=== PATIENT | female | born 1945 | race Caucasian/White ===

== ENCOUNTER 2021-12-29 22:37 | Observation (INO) ==
[2021-12-29] MEDS ORDERED: 0.9 % Sodium Chloride 1,000 ML IVC ONE (23:01)
[2021-12-29] MEDS ORDERED: levoFLOXacin 750 MG/150 ML 750 MG/150 ML BAG IVPB ONE (23:01)
[2021-12-29] MEDS ORDERED: Ondansetron 4 MG/2 ML VIAL IVP ONE (23:03)
[2021-12-29] MEDS ORDERED: Azithromycin 500 MG VIAL ONE (23:06)
[2021-12-29] MEDS ORDERED: Ipratropium/Albuterol Neb 3 ML IH ONE (23:10)
[2021-12-29] MEDS: Azithromycin 500 MG in 0.9 % Sodium Chloride 250 ML IVPB ONE ×2 (23:22→23:45)
[2021-12-29 23:23] LABS: Basophils % 0.2 %; Eosinophils # 0.1 K/mcL (0.0-0.6); Eosinophils % 1.4 %; Hematocrit 34.2 % (35.3-44.9); Hemoglobin 11.4 g/dL (11.5-15.4); Immature Granulocytes % 0.2 % (0-4); Lymphocytes # 0.8 K/mcL (0.6-4.6); Lymphocytes % 16.2 %; Mean Corpuscular HGB Conc 33.3 g/dL (31.6-35.5); Mean Corpuscular Hemoglobin 34.1 pg (28.0-33.3); Mean Corpuscular Volume 102.4 fL (83.0-100.0); Mean Platelet Volume 9.4 fL (9.4-12.4); Monocytes # 0.3 K/mcL (0.0-1.3); Monocytes % 5.5 %; Neutrophils # 3.7 K/mcL (1.6-8.9); Red Blood Count 3.34 M/mcL (3.82-4.97); Red Cell Distribution Width 14.6 % (11.5-14.5); Segmented Neutrophils % 76.5 %; White Blood Count 4.9 K/mcL (4.3-11.1)
[2021-12-29 23:28] LABS: Platelet Count 76 K/mcL (140-400)
[2021-12-29 23:29] LABS: INR 1.3; Prothrombin Time 14.6 Seconds (9.4-12.1)
[2021-12-29 23:40] LABS: Troponin I < 0.03 ng/mL (< 0.04)
[2021-12-29 23:41] LABS: Alanine Aminotransferase 35 Units/L (7-52); Albumin 3.8 g/dL (3.5-5.7); Albumin/Globulin Ratio 1.7 (1.1-2.2); Alkaline Phosphatase 111 Units/L (34-104); Aspartate Amino Transferase 71 Units/L (13-39); BUN/Creatinine Ratio 16 (6-26); Bilirubin,Direct 0.4 mg/dL (0.0-0.2); Bilirubin,Indirect 0.5 mg/dL (0.0-1.0); Bilirubin,Total 0.9 mg/dL (0.3-1.0); Blood Urea Nitrogen 14 mg/dL (8-23); Calcium 9.2 mg/dL (8.6-10.3); Carbon Dioxide 28 mEq/L (23-29); Chloride 99 mEq/L (98-107); Globulin 2.3 g/dL (2.4-3.5); Glucose 125 mg/dL (70-105); Osmolality,Calculated 280 (280-300); Potassium 4.1 mEq/L (3.5-5.1); Sodium 134 mEq/L (136-145); Total Protein 6.1 g/dL (6.4-8.9); eGFR For African Americans > 60 (> 60); eGFR For Non-African Americans > 60 (> 60)
[2021-12-29 23:48] LABS: VBG HCO3 25 mEq/L (21-27); VBG PCO2 34 mmHg (41-51); VBG PH 7.47 pH Units (7.32-7.42); VBG PO2 121 mmHg (25-50)
[2021-12-30] MEDS ORDERED: 0.9 % Sodium Chloride 1,000 ML IVC ONE ×2 (00:07→01:37)
[2021-12-30] MEDS ORDERED: 0.9 % Sodium Chloride 1,000 ML IVC SCH ×4 (00:15→03:50)
[2021-12-30] MEDS ORDERED: Pantoprazole 40 MG VIAL IVP ONE (00:31)
[2021-12-30 01:12] LABS: Bilirubin,Urine Negative (Negative); Blood,Urine Negative (Negative); Clarity,Urine Clear (Clear); Color,Urine Yellow (Yellow); Glucose,Urine (UA) Normal (Normal); Ketones,Urine Negative (Negative); Leukocyte Esterase,Urine Negative (Negative); Nitrite,Urine Negative (Negative); Protein,Urine Negative (Neg-Trace); Specific Gravity,Urine 1.025 (1.010-1.025); Urobilinogen,Urine Normal (Normal)
[2021-12-30] MEDS ORDERED: Ondansetron 4 MG/2 ML VIAL IVP PRN ×2 (03:48→03:50)
[2021-12-30] MEDS ORDERED: Azithromycin 500 MG VIAL ONE ×2 (03:48→03:50)
[2021-12-30] MEDS ORDERED: Acetaminophen 325 MG TABLET PO PRN ×2 (03:48→03:50)
[2021-12-30] MEDS ORDERED: Naloxone 0.4 MG/ML INJ IVP PRN ×2 (03:48→03:50)
[2021-12-30] MEDS ORDERED: Nitroglycerin 0.4 MG TAB.SUBL SL PRN ×2 (03:48→03:50)
[2021-12-30] MEDS ORDERED: Ipratropium/Albuterol Neb 3 ML IH SCH (04:00)
[2021-12-30] MEDS ORDERED: *HR* Enoxaparin 40 MG/0.4 ML SYRINGE SQ SCH ×2 (07:00)
[2021-12-30] MEDS: Ipratropium/Albuterol Neb 3 ML IH SCH ×5 (07:12→23:22)
[2021-12-30] MEDS: Budesonide/Formoterol 160/4.5 1 PUFF INH IH SCH ×2 (07:12→19:40)
[2021-12-30] MEDS ORDERED: Sucralfate 1 GM TABLET PO SCH (07:30)
[2021-12-30] MEDS: Sucralfate 1 GM TABLET PO SCH ×4 (08:44→20:13)
[2021-12-30] MEDS: 0.9 % Sodium Chloride 1,000 ML IVC SCH ×2 (08:52→10:28)
[2021-12-30] MEDS ORDERED: CarBAMazepine XR (12 hr) 100 MG TAB PO SCH (09:00)
[2021-12-30] MEDS ORDERED: CARBAMAZEPINE 200 MG PO SCH (09:00)
[2021-12-30] MEDS ORDERED: NON-FORMULARY MEDICATION 1 EACH EACH (Esomeprazole Magnesium [Nexium] 40 MG Capsule.Dr) PO SCH (09:00)
[2021-12-30] MEDS ORDERED: NON-FORMULARY MEDICATION 1 EACH EACH (Ezetimibe [Zetia] 10 MG Tablet) PO SCH (09:00)
[2021-12-30] MEDS ORDERED: NON-FORMULARY MEDICATION 1 EACH EACH (Umeclidinium Bromide [Incruse Ellipta] 62.5 MCG) IH SCH (09:00)
[2021-12-30] MEDS ORDERED: Tiotropium 10 INH DOSE IH SCH ×2 (09:00)
[2021-12-30] MEDS ORDERED: Famotidine 20 MG TABLET PO SCH ×2 (09:00)
[2021-12-30] MEDS ORDERED: NON-FORMULARY MEDICATION 1 EACH EACH (Umeclidinium Bromide [Incruse Ellipta] 62.5 MCG Blst IH SCH (09:00)
[2021-12-30] MEDS ORDERED: NON-FORMULARY MEDICATION 1 EACH EACH (Roflumilast [Daliresp] 500 MCG Tablet) PO SCH (09:00)
[2021-12-30] MEDS ORDERED: Aspirin 325 MG TABLET PO SCH ×2 (09:00)
[2021-12-30] MEDS ORDERED: Roflumilast [Daliresp] 500 MCG PO SCH (09:00)
[2021-12-30] MEDS ORDERED: EZETIMIBE 10 MG PO SCH (09:00)
[2021-12-30] MEDS ORDERED: Budesonide/Formoterol 160/4.5 1 PUFF INH IH SCH (10:00)
[2021-12-30] MEDS: MethylPREDNISolone 40 MG/ML VIAL IVP SCH ×4 (11:03→23:51)
[2021-12-30 20:12] LABS: Adenovirus Not Detected (Not Detect); Bordetella Pertussis Not Detected (Not Detect); Chlamydophila pneumoniae Not Detected (Not Detect); Coronavirus 229E Not Detected (Not Detect); Coronavirus HKU1 Not Detected (Not Detect); Coronavirus NL63 Not Detected (Not Detect); Coronavirus OC43 Not Detected (Not Detect); Human Metapneumovirus DETECTED (Not Detect); Human Rhinovirus/Enterovirus Not Detected (Not Detect); Influenza A Subtype 2009 H1 Not Detected (Not Detect); Influenza B Not Detected (Not Detect); Mycoplasma pneumoniae Not Detected (Not Detect); Parainfluenza Virus 1 Not Detected (Not Detect); Parainfluenza Virus 2 Not Detected (Not Detect); Parainfluenza Virus 3 Not Detected (Not Detect); Parainfluenza Virus 4 Not Detected (Not Detect); Respiratory Syncytial Virus Not Detected (Not Detect); SARS-CoV-2 Not Detected (Not Detect)
[2021-12-30] MEDS ORDERED: Gabapentin 300 MG CAPSULE PO SCH ×2 (21:00)
[2021-12-31] MEDS ORDERED: levoFLOXacin 750 MG/150 ML 750 MG/150 ML BAG IVPB SCH
[2021-12-31] MEDS ORDERED: Haloperidol Lactate 5 MG/ML VIAL IVP ONE (00:24)
[2021-12-31] MEDS ORDERED: Furosemide 20 MG/2 ML VIAL IVP ONE (01:11)
[2021-12-31 02:03] VITALS: TEMP 97.7
[2021-12-31] MEDS ORDERED: *HR* Metoprolol 5 MG/5 ML VIAL IVP ONE (02:16)
[2021-12-31 02:33] LABS: Hematocrit 39.6 % (35.3-44.9); Hemoglobin 12.9 g/dL (11.5-15.4); Mean Corpuscular HGB Conc 32.6 g/dL (31.6-35.5); Mean Corpuscular Hemoglobin 33.9 pg (28.0-33.3); Mean Corpuscular Volume 104.2 fL (83.0-100.0); Mean Platelet Volume 9.3 fL (9.4-12.4); Red Cell Distribution Width 14.9 % (11.5-14.5); White Blood Count 11.7 K/mcL (4.3-11.1)
[2021-12-31 02:35] LABS: Platelet Count 85 K/mcL (140-400)
[2021-12-31 02:43] LABS: INR 1.1; Prothrombin Time 12.5 Seconds (9.4-12.1)
[2021-12-31 02:46] LABS: D-Dimer 1406 ng/mLFEU (0-500); Heparin anti-factor XA UFH < 0.04 IU/mL (0.30-0.70)
[2021-12-31 02:47] LABS: VBG HCO3 25 mEq/L (21-27); VBG PCO2 55 mmHg (41-51); VBG PH 7.26 pH Units (7.32-7.42); VBG PO2 49 mmHg (25-50)
[2021-12-31 02:52] LABS: BUN/Creatinine Ratio 17 (6-26); Blood Urea Nitrogen 16 mg/dL (8-23); Calcium 9.7 mg/dL (8.6-10.3); Carbon Dioxide 27 mEq/L (23-29); Chloride 105 mEq/L (98-107); Glucose 142 mg/dL (70-105); Osmolality,Calculated 294 (280-300); Potassium 4.2 mEq/L (3.5-5.1); Sodium 140 mEq/L (136-145); eGFR For African Americans > 60 (> 60); eGFR For Non-African Americans 59 (> 60)
[2021-12-31] MEDS ORDERED: *HR* Heparin 5,000 UNIT/ML VIAL IVP PRN ×2 (03:02)
[2021-12-31] MEDS ORDERED: *HR* Heparin 5,000 UNIT/ML VIAL IVP ONE (03:02)
[2021-12-31] MEDS ORDERED: Heparin 25,000UNIT/250ML 1/2NS 25,000 UNIT/250 ML IV.SOLN IVC SCH (03:15)
[2021-12-31] MEDS ORDERED: Ipratropium Neb 0.5 MG NEBULIZER IH SCH (04:00)
[2021-12-31] MEDS ORDERED: Levalbuterol Neb 1.25 MG/3 ML IH SCH (04:00)
[2021-12-31 04:11] LABS: ABG Base Excess -4 mEq/L (-2 to 3); ABG HCO3 31 mEq/L (21-27); ABG Oxygen Saturation 93 % (95-98); ABG PCO2 123 mmHg (35-45); ABG PH 7.01 pH Units (7.32-7.45); ABG PO2 103 mmHg (85-104); ABG TCO2 35 mEq/L (20-26)
[2021-12-31] MEDS: Sucralfate 1 GM TABLET PO SCH (06:18)
[2021-12-31] MEDS ORDERED: *HR* Midazolam HCl 5 MG/5 ML VIAL IVP ONE ×3 (07:02→10:00)
[2021-12-31] MEDS ORDERED: MIDAZOLAM HCL IVC SCH (07:30)
[2021-12-31] MEDS ORDERED: SODIUM CHLORIDE 0.9% IVC SCH (07:30)
[2021-12-31] MEDS ORDERED: *HR* Norepinephrine 4 MG/4 ML VIAL IVC ONE (08:00)
[2021-12-31] MEDS ORDERED: MethylPREDNISolone 40 MG/ML VIAL IVP SCH (08:00)
[2021-12-31 08:04] LABS: ABG Base Excess -4 mEq/L (-2 to 3); ABG HCO3 28 mEq/L (21-27); ABG Oxygen Saturation 91 % (95-98); ABG PCO2 86 mmHg (35-45); ABG PH 7.12 pH Units (7.32-7.45); ABG PO2 83 mmHg (85-104); ABG TCO2 31 mEq/L (20-26)
[2021-12-31] MEDS ORDERED: *HR* FentaNYL (PF) 100 MCG/2 ML VIAL IVP ONE (08:21)
[2021-12-31 08:39] VITALS: O2SAT 100
[2021-12-31 08:57] VITALS: RESP 18
[2021-12-31] MEDS ORDERED: Norepinephrine 4 MG/254 ML IV.SOLN IVC SCH (09:00)
[2021-12-31 09:09] VITALS: PULSE 90
[2021-12-31 09:11] VITALS: BP 114/81
[2021-12-31] MEDS ORDERED: Norepinephrine 4 MG in 0.9 % Sodium Chloride 250 ML IVC SCH (09:15)
[2021-12-31] MEDS ORDERED: *HR* Succinylcholine 200 MG/10 ML VIAL IVP ONE (10:00)
[2021-12-31 10:54] LABS: ABG PCO2 > 150 mmHg (35-45); ABG PH 6.91 pH Units (7.32-7.45); ABG PO2 77 mmHg (85-104)
== END 2021-12-31 09:14 | disposition short-term general hospital (02) ==
LOC: EMEROOGRE 22:37 → INPGRE 22:37 → SUATTDRO 12-30 03:05 → INPGRE 12-30 03:50
PROVIDERS: ADMIT Family Medicine; ATTEND Family Medicine